=== PATIENT | female | born 2000 | race Two or more races ===

== ENCOUNTER 2022-03-20 07:15 | Outpatient (CLI) | payer OTHER | END 2022-03-20 11:11 | disposition home or self-care (01) | LOC: RAD 07:15 | DX: R23.0 Cyanosis (principal); M41.9 Scoliosis, unspecified ==

== ENCOUNTER → 2022-03-20 | Outpatient (CLI) | payer OTHER | END | disposition home or self-care (01) | LOC: NUCLEAR 08:00 | PROVIDERS: ATTEND Specialist | DX: I73.9 Peripheral vascular disease, unspecified (principal); R23.0 Cyanosis ==